=== PATIENT | female | born 1990 | race Caucasian/White ===

== ENCOUNTER 2018-08-05 12:06 | Emergency (ER) | payer MEDICAID ==
[~2018-08-05] VITALS: Ht 165.1 cm; Wt 90.9 kg
--- NOTE | 2018-08-05 12:45 | NUR ---
PT REPORTS SEVERE PAIN IN ABD SINCE WEDNESDAY. PAIN HAS NOW RESOLVED, BUT SHE REPORTS FULLNESS IN ABD.
[2018-08-05] MEDS ORDERED: KETOROLAC 30 MG/1 ML IM PRN (13:00)
[2018-08-05 13:12] LABS: BASOPHILS # (AUTO) 0.02 x10^3/uL (0-0.1); BASOPHILS % (AUTO) 0 % (0-1); EOSINOPHILS # (AUTO) 0.01 x10^3/uL (0-0.4); EOSINOPHILS % (AUTO) 0 % (1-7); LYMPHOCYTES # (AUTO) 1.29 x10^3/uL (1-3.4); LYMPHOCYTES % (AUTO) 9 % (22-44); MD NO; MEAN CORPUSCULAR HEMOGLOBIN 30.9 pg (27.0-34.8); MEAN CORPUSCULAR HGB CONC 33.6 g/dL (32.4-35.8); MEAN CORPUSCULAR VOLUME 91.9 fL (80-100); MEAN PLATELET VOLUME 8.9 fL (7.4-10.4); MONOCYTES # (AUTO) 0.61 x10^3/uL (0.2-0.8); MONOCYTES % (AUTO) 4 % (2-9); NEUTROPHILS # (AUTO) 12.89 x10^3/uL (1.8-6.8); NEUTROPHILS % (AUTO) 87 % (42-75); PLATELET COUNT 267 x10^3/uL (130-400); RED BLOOD COUNT 4.74 x10^6/uL (3.82-5.3); RED CELL DISTRIBUTION WIDTH 13.1 % (9.6-15.2)
[2018-08-05] MEDS ORDERED: KETOROLAC 30 MG/1 ML ONE (13:16)
[2018-08-05 13:20] LABS: HCG UR SG 1.025 (1.003-1.030); MICROSCOPIC AUTO
[2018-08-05 13:21] LABS: ALBUMIN 3.7 g/dL (3.4-5.0); ANION GAP 9 mmol/L (5-15); CALCIUM 9.2 mg/dL (8.5-10.1); CHLORIDE 102 mmol/L (98-107)
[2018-08-05 13:24] LABS: ALANINE AMINOTRANSFERASE 23 U/L (12-78); ALKALINE PHOSPHATASE 64 U/L (45-117); BILIRUBIN,TOTAL 1.4 mg/dL (0.2-1.0); CREATININE 0.89 mg/dL (0.55-1.02); TOTAL PROTEIN 7.4 g/dL (6.4-8.2)
[2018-08-05] MEDS ORDERED: KETOROLAC 60 MG/2 ML ONE (13:29)
--- NOTE | 2018-08-05 13:42 | NUR ---
PT PRESENTS WITH PAINFUL URINATION, RETENTION, BLADDER AND RS ABD PAIN. PT SAYS URINE IS "BROWNISH". PT SAYS THESE SYMPTOMS STARTED AT 0400 TODAY. PT MEDICATED FOR PAIN. DENIES ADDITIONAL NEEDS.
[2018-08-05 14:40] VITALS: BP 164/115
--- NOTE | 2018-08-05 15:08 | NUR ---
Patient is resting comfortably in bed. Pt on cont VS, intermittent tach (110's).
--- NOTE | 2018-08-05 15:45 | NUR ---
Patient given discharge instructions and they have confirmed that they understand the instructions. Patient ambulatory with steady gait.
== END 2018-08-05 15:47 | disposition home or self-care (01) ==
LOC: ED 13:19
DX: O26.892 Other specified pregnancy related conditions, second trimester (principal); N13.2 Hydronephrosis with renal and ureteral calculous obstruction; I10 Essential (primary) hypertension; Z3A.14 14 weeks gestation of pregnancy
CPT/HCPCS: 36415; 76770; 76801; 80053; 81001; 81025; 84702; 85025; 96372; 99284; J1885